=== PATIENT | female | born 1995 | race Two or more races ===

== ENCOUNTER 2017-04-29 14:00 | Emergency (ER) | payer MEDICAID, OTHER ==
[~2017-04-29] VITALS: Ht 162.6 cm; Wt 99.4 kg
[2017-04-29 14:06] VITALS: BP 119/85
[2017-04-29] MEDS ORDERED: IBUPROFEN 200 MG TABLET ONE (14:49)
[2017-04-29] MEDS ORDERED: IBUPROFEN 200 MG TABLET PO ONE (15:00)
[2017-04-29] MEDS ORDERED: BICILLIN-LA 1,200,000 UNITS/2 ML IM ONE (15:30)
== END 2017-04-29 16:08 | disposition home or self-care (01) ==
LOC: ED 16:00
DX: J02.0 Streptococcal pharyngitis (principal)
CPT/HCPCS: 87880; 96372; 99283; J0561